=== PATIENT | male | born 1940 | race Caucasian/White ===

== ENCOUNTER 2016-08-31 10:52 | Outpatient (CLI) | payer OTHER ==
[2016-02-11 22:28] VITALS: BP 139/71
[~2016-08-31 10:52] MED LIST: BUPIVACAINE HCL/PF 2.5 MG/ML 10ML VIAL IV ONE; Lidocaine 1% 5ml(IM or SUTURE)(PAIN CLINIC) ONE; TRIAMCINOLONE ACETONID 40MG/ML VIAL ONE
--- NOTE | 2016-09-01 09:45 | HISTORY AND PHYSICAL REPORT ---
REFERRING PHYSICIAN: Dr. Shorty Bah Dear Diony: HISTORY OF PRESENT ILLNESS: I had the opportunity of seeing Aric Payne today as an outpatient in clinic. As you are aware, Aric is a delightful 75-year-old white male who complains of primary right-sided hip and leg pain. He tells me that he has had this a couple of years and that it is worse with activity and walking and that over the past several months, it has gotten more pronounced so that he cannot tolerate standing for more than 5 or 10 minutes before he gets right-sided hip pain which radiates over the lateral thigh. He denies pain below the right knee. He denies pain on the left. He denies low back pain or pain in the gluteal fold. He says when he is relaxing, he has virtually no symptoms, but when he is up on his feet, he gets pain which begins relatively shortly with standing. He had an MRI done and he has a good deal of lumbar degenerative disk disease throughout the lumbar spine, particularly at L2-L3, L3-L4, L4-L5, and L5-S1. There is a grade 1 L4-L5 spondylolisthesis with relatively severe right L4-L5 neuroforaminal stenosis and otherwise, left L5-S1 neuroforaminal stenosis. The spinal canal is also notably narrow at L4-L5 on the right side; however, he has no pain in the sciatic notch. PAST MEDICAL HISTORY: 1. History of hypertension. 2. History of multiple DVTs. 3. Factor V Leiden. 4. Anxiety. 5. Gout. PAST SURGICAL HISTORY: 1. Bilateral inguinal hernia repairs. 2. Bilateral rotator cuff repairs. CURRENT DAILY MEDICATIONS: 1. Atenolol 100 mg in the a.m. and 50 mg in the p.m. 2. Warfarin 5 mg daily. 3. HCTZ 25 mg daily. 4. Allopurinol 300 mg daily. 5. Sertraline 50 mg daily. 6. Hydroxyzine 25 mg p.r.n. 7. Viagra 100 mg p.r.n. ALLERGIES: He has no known drug allergies. SOCIAL HISTORY: He has never used tobacco. 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 He quit drinking in 1998. He denies recreational drug use. He is for the past 11 years. He has 2 children. He lives at home with his spouse. He is retired. He completed the 12th grade. He is not currently disabled. FAMILY HISTORY: Father with a stroke. Mother with heart disease and rheumatoid arthritis. REVIEW OF SYSTEMS: In the past month or so, he reports feeling anxious. His pain is worse with standing, walking, changes in weather, cold, heat, touch and gradually gets worse as the day progresses. Pain is improved with lying down, sitting, ice, and heat. PHYSICAL EXAMINATION: General: This is a mildly obese white male in no apparent distress. Vital Signs: BP: 155/78, P: 62, R: 20, oxygen saturation is 96% on room air. HEENT: Pupils are equal, round, and reactive to light and accommodation. Extraocular movements intact. No facial droop. Neck: There is full range of motion of the cervical spine. No evidence of adenopathy. Thyroid is nontender, no enlarged. Carotids are without bruits. Chest: Clear to auscultation bilaterally. Normal. Chest excursion. Heart: Regular rate and rhythm without murmur. Abdomen: Benign. Normoactive bowel sounds. Motor/sensory: Intact in the upper and lower extremities. Moves all extremities freely. Extremities: Strength is 5/5 and equal in his lower extremities. Negative straight leg raise. There is negative pain in the sciatic notch. There is markedly a positive Tinel's sign of the right hip. ASSESSMENT: 1. Right greater trochanteric bursitis. 2. L4-L5 spinal and neuroforaminal stenosis. 3. Factor V deficiency, on Coumadin. PLAN: At this point, I really think Mr. Payne's symptoms are coming from bursitis of the right hip and is not radicular. I have explained to him that I am going to place a right greater trochanteric bursa injection under fluoroscopy today and we will see if his symptoms resolve. If not, he is to stop his Coumadin and I will follow him up for an L4-L5 epidural injection. I did also discuss PRP therapy for the right bursitis. He is in agreement today and we will proceed. cc: Dr. Neo LESTER
--- NOTE | 2016-09-01 09:48 | GREATER THROCHANTERIC BURSA IN ---
NAME OF PROCEDURE PERFORMED: Right greater trochanteric bursa injection with fluoroscopy. DESCRIPTION OF PROCEDURE: The risks and benefits of the procedure were discussed with the patient, including the risk of infection, bleeding, nerve injury. Furthermore, I discussed the risk of steroid exposure causing hyperglycemia, hypertension, osteoporosis, or increased infectious risks. The patient understood the risks and agreed to proceed. Consent was obtained. The patient was placed in prone position on the fluoroscopy table and the skin overlying the right greater trochanter of the femur was cleaned with an alcohol swab. The trochanter was visualized under AP fluoroscopy. A 25 gauge 1.5 needle was inserted over the trochanter and advanced until contact with the trochanter. It was verified that there was no aspiration of fluid or blood. Triamcinolone acetate, 1% lidocaine, and 0.25% bupivacaine was injected. The needle was removed. The patient was monitored for 20 minutes following the procedure, during which time the patient experienced no adverse sequelae. The patient was discharged to home in good condition with a ambulette driver driving the pt. home. ASSESSMENT: Trochanteric bursitis of the right hip. PLAN: Right greater trochanteric bursa injection with fluoroscopy. FOLLOW UP: Return to clinic if problems develop or worsen. cc: Dr. Antony LESTER
== END 2016-08-31 11:00 ==
LOC: OUT 10:52
PROVIDERS: ATTEND Anesthesiology Pain Medicine
DX: M70.71 Other bursitis of hip, right hip (principal)
CPT/HCPCS: J3301; J3490; 20610; 77002; 90471; 99213; G0463

== ENCOUNTER 2016-10-26 14:08 | Outpatient (CLI) | payer OTHER ==
[2016-02-11 22:28] VITALS: BP 139/71
[2016-10-26 15:42] LABS: eGFR (African) > 60; eGFR (Non-African) > 60
== END 2016-10-26 14:10 ==
LOC: LAB 14:08
PROVIDERS: ATTEND Family Medicine
DX: E78.1 Pure hyperglyceridemia (principal); I10 Essential (primary) hypertension
CPT/HCPCS: 36415; 80053; 80061

== ENCOUNTER 2016-11-16 10:28 | Outpatient (CLI) | payer OTHER ==
[2016-02-11 22:28] VITALS: BP 139/71
--- NOTE | 2016-11-18 09:33 | GREATER THROCHANTERIC BURSA IN ---
REFERRING PHYSICIAN: Dr. Antony Chandler SUBJECTIVE: I had the opportunity of following up with Aric Payne. This is a very nice 76 -year-old white male with right greater trochanteric bursitis. I placed a greater trochanteric bursa injection in August and had complete 100% relief. He said the symptoms are now returning. I re-examined him and they do appear to be at the greater trochanteric bursa and it is recurrent. I have discussed PRP therapy for his right-sided bursitis. For today, I will repeat a right greater trochanteric bursa injection under fluoroscopy. PROCEDURE: Right greater trochanteric bursa injection with fluoroscopy. DESCRIPTION OF PROCEDURE: The risks and benefits of the procedure were discussed with the patient, including the risk of infection, bleeding, nerve injury. Furthermore, I discussed the risk of steroid exposure causing hyperglycemia, hypertension, osteoporosis, or increased infectious risks. The patient understood the risks and agreed to proceed. Consent was obtained. The patient was placed in prone position on the fluoroscopy table and the skin overlying the right greater trochanter of the femur was cleaned with an alcohol swab. The trochanter was visualized under AP fluoroscopy. A 25-gauge 1.5 needle was inserted over the trochanter and advanced until contact with the trochanter. It was verified that there was no aspiration of fluid or blood. Triamcinolone acetate and 1% lidocaine and 0.25% bupivacaine was injected. The needle was removed. The patient was monitored for 20 minutes following the procedure, during which time the patient experienced no adverse sequelae. The patient was discharged to home in good condition with a bobcat driver/labor driving the patient home. ASSESSMENT: Trochanteric bursitis of the hip. PLAN: Right greater trochanteric bursa injection today. FOLLOW UP: Return to clinic if problems develop or worsen. cc: Dr. Antony LESTER
== END 2016-11-16 10:30 ==
LOC: OUT 10:28
PROVIDERS: ATTEND Anesthesiology Pain Medicine
DX: M70.61 Trochanteric bursitis, right hip (principal)
CPT/HCPCS: J3301; J3490; 20610; 20611; 99214; G0463

== ENCOUNTER 2017-01-18 09:12 | Outpatient (CLI) | payer OTHER ==
[2016-02-11 22:28] VITALS: BP 139/71
--- NOTE | 2017-01-18 13:42 | LUMBAR TFESI ---
SUBJECTIVE: Mr. Payne follows up with me today complaining of a new onset of right gluteal pain radiating to the anterior thigh. He said that the gluteal bursa injection that I gave him worked well; however, he was putting in some wind art and bent forward over a wall and began noticing pain shortly thereafter. They took a drive to [place] and he was having severe and significant right anterior thigh pain on the drive. He has had some recurrence of the gluteal bursitis as well. On physical exam, he has a positive assisted extension and rotation finding and a positive femoral nerve stretch on the right side. There is 3+ reflexes on the left patellar tendon and 1+ reflex on the right patellar tendon. DIAGNOSTIC STUDIES: His MRI was reviewed. He has marked degenerative disk disease at L4-L5, grade 1 spondylolisthesis with severe right-sided foraminal stenosis and otherwise moderate spinal stenosis. PROCEDURE: Right L4 transforaminal epidural steroid injection with fluoroscopic guidance. DESCRIPTION OF PROCEDURE: The risks and benefits were discussed with the patient including the risks of infection, bleeding, nerve injury, and headache, as well as the risks of steroid exposure causing hyperglycemia, hypertension, osteoporosis, or increased infectious risk. The patient understood these risks and agreed to proceed. Consent was obtained. The patient was placed in the prone position on the fluoroscopy table with a pillow underneath the abdomen to afford anterior flexion of the lumbar spine. The low back was cleaned and a sterile drape was applied. AP, lateral and oblique fluoroscopic views were obtained identifying the L4 vertebral body and L4 transverse process. An oblique view of the transverse process and pedicles was obtained. A 23-gauge Quincke tip 3.5 spinal needle was advanced under direct-beam (barrel view) fluoroscopic guidance until the tip contacted the superior-most aspect of the right L5 superior articulating process. The needle was then directed superiorly and medially a few millimeters towards the intervertebral foramen. A lateral fluoroscopic view was obtained and the needle was advanced into the inferior/anterior aspect of the L4 neural foramen (L4-L5 intervertebral foramen) epidural space. It was verified that there was no aspiration of CSF or blood. Omnipaque 240 myelogram dye was injected through the needle. The dye was noted to course in the desired distribution within the lumbar foramen epidural space. The patient did report some reproduction of the low back and /or lower extremity pain symptoms; this reproduction of symptoms was short-lived, ceasing within a minute. Triamcinolone acetate and 0.25% bupivacaine was injected into the epidural space. The stylet was replaced in the needle and the needle was removed from the back. The patient tolerated the procedure well. The back was cleaned and a bandage was applied over the injection site. The patient was monitored for 20 minutes following the procedure. During this time the vital signs remained stable and the patient experienced no adverse sequelae. The patient was discharged home in good condition. ASSESSMENT: 1. Right L4 radiculitis. 2. Right greater trochanteric bursitis. 3. L4-L5 spinal and neuroforaminal stenosis. 4. Lumbar radicular pain. PLAN: Plan today for a right L4 transforaminal injection as a diagnostic/therapeutic intervention. He is in agreement today and we will proceed. FOLLOWUP: Return to clinic if problems develop or worsen. cc: Dr. Antony LESTER
== END 2017-01-18 09:13 ==
LOC: OUT 09:12
PROVIDERS: ATTEND Anesthesiology Pain Medicine
DX: M54.16 Radiculopathy, lumbar region (principal); M48.06 Spinal stenosis, lumbar region; M54.5 Low back pain; M70.61 Trochanteric bursitis, right hip
CPT/HCPCS: 64483; 99214; G0463; J3301; J3490; Q9966

== ENCOUNTER 2017-03-08 16:05 | Outpatient (CLI) | payer OTHER ==
[2016-02-11 22:28] VITALS: BP 139/71
[2017-03-08 16:22] LABS: BASOPHILS % 0.8 (0.0-1.5); EOSINOPHILS % 2.4 % (0.0-6.8); MEAN CORPUSCULAR HEMOGLOBIN 34.6 pg (28.0-34.0); MEAN CORPUSCULAR VOLUME 98.6 fl (80.0-100.0); MONOCYTES % 5.3 % (0.0-11.0); NEUTROPHILS # 6.5 # k/uL (1.4-7.7)
[2017-03-08 16:55] LABS: eGFR (African) > 60; eGFR (Non-African) > 60
== END 2017-03-08 16:06 ==
LOC: LAB 16:05
PROVIDERS: ATTEND Family Medicine
DX: I10 Essential (primary) hypertension (principal); R63.5 Abnormal weight gain; D68.51 Activated protein C resistance; I82.409 Acute embolism and thrombosis of unspecified deep veins of unspecified lower extremity
CPT/HCPCS: 36415; 80053; 84443; 85025; 85610

== ENCOUNTER 2017-05-03 12:45 | Outpatient (CLI) | payer OTHER ==
[2016-02-11 22:28] VITALS: BP 139/71
--- NOTE | 2017-05-03 14:28 | Diagnostic Imaging Report ---
HORACIO BENITEZ [facility] [address] [facility].[address] [address] Report Submission Date: May 03, 2017 1:53:59 PM CDT Patient Study Name: DANIEL FERNANDEZ Date: May 03, 2017 1:03:22 PM CDT Modality Type: US Gender: M Description: DPLX SCN XTRCRAN ART CMP GEORGE : 44 Institution: [facility] Physician: HORACIO BENITEZ Examination: Carotid artery ultrasound History: Syncope Comparison exams: None available Findings: Right carotid: Common carotid artery peak systolic velocity 74.4 cm/s; end diastolic velocity 20.6 cm/s. Internal carotid artery peak systolic velocity 68.7 cm/s; end diastolic velocity 24.2 cm/s. External carotid artery velocity to 94.2 cm/s. Vertebral artery velocity 26.0 cm/s Vertebral flow antegrade. Normal waveforms. No occlusive plaquing. Left carotid: Common carotid artery peak systolic velocity 92.1 cm/s; end diastolic velocity 21.6 cm/s. Internal carotid artery peak systolic velocity 62.5 cm/s; end diastolic velocity 25.8 cm/s. External carotid artery velocity to 70.4 cm/s. Vertebral artery velocity 37.0 cm/s Vertebral flow antegrade. Normal waveforms. No occlusive plaquing. Right ICA/CCA Ratio: 0.9 Left ICA/CCA Ratio 0.7 Impression: Carotids ratios not elevated. No restriction to hemodynamic flow. Electronically signed on May 03, 2017 1:53:59 PM CDT by: Jarvis LESTER
--- NOTE | 2017-05-03 14:29 | Diagnostic Imaging Report ---
HORACIO BENITEZ [facility] [address] [facility] [address] [place], [place]. [address] Report Submission Date: May 03, 2017 1:07:21 PM CDT Patient Study Name: DANIEL FERNANDEZ Date: May 03, 2017 12:46:49 PM CDT Modality Type: CR Gender: M Description: CHEST : 44 Institution: [facility] Physician: HORACIO BENITEZ Examination: PA and lateral chest. History: Evaluate lung floyd. Comparison exam: None provided Findings: PA lateral chest demonstrate a normal cardiac and mediastinal silhouette. Minimal parenchymal haziness of right inferior hilar region. No blunting of the costophrenic margins. Osseous structures are appropriate for age. Impression: Suggestion for mild right infrahilar infiltrate. No effusion Electronically signed on May 03, 2017 1:07:21 PM CDT by: Jarvis LESTER
== END 2017-05-03 12:46 ==
LOC: RAD 12:45
PROVIDERS: ATTEND Family Medicine
DX: I65.23 Occlusion and stenosis of bilateral carotid arteries (principal); R06.09 Other forms of dyspnea
CPT/HCPCS: 71020; 93880

== ENCOUNTER 2017-05-10 14:10 | Outpatient (CLI) | payer OTHER ==
[2016-02-11 22:28] VITALS: BP 139/71
== END 2017-05-10 14:11 ==
LOC: RT 14:10
PROVIDERS: ATTEND Family Medicine
DX: R06.09 Other forms of dyspnea (principal)

== ENCOUNTER 2017-06-15 10:05 | Outpatient (CLI) | payer OTHER ==
[2016-02-11 22:28] VITALS: BP 139/71
== END 2017-06-15 10:06 ==
LOC: CARD 10:05
PROVIDERS: ATTEND Internal Medicine Cardiovascular Disease
DX: R06.00 Dyspnea, unspecified (principal); R42 Dizziness and giddiness; I10 Essential (primary) hypertension; E66.9 Obesity, unspecified; Z86.718 Personal history of other venous thrombosis and embolism
CPT/HCPCS: G0463

== ENCOUNTER 2017-06-22 13:24 | Outpatient (CLI) | payer OTHER ==
[2016-02-11 22:28] VITALS: BP 139/71
--- NOTE | 2017-06-22 15:21 | Diagnostic Imaging Report ---
DALTON HARPER [facility] [address] [facility] [address] [address] Report Submission Date: Jun 22, 2017 1:43:44 PM ENERGY RATER Patient Study Name: DANIEL FERNANDEZ Date: Jun 22, 2017 1:34:31 PM ENERGY RATER Modality Type: CR Gender: M Description: CHEST : 44 Institution: [facility] Physician: DALTON HARPER Examination: PA and lateral chest. History: Evaluate lung floyd. 03 May 2017 Findings: PA lateral chest demonstrate a normal cardiac and mediastinal silhouette. Mild tortuosity of the thoracic aorta. Stable lung base scarring. No focal infiltrate. No blunting of the costophrenic margins. Osseous structures are appropriate for age. Impression: No acute pulmonary process. Electronically signed on Jun 22, 2017 1:43:44 PM ENERGY RATER by: Jarvis LESTER
== END 2017-06-22 14:11 ==
LOC: RAD 13:24
PROVIDERS: ATTEND Physician Assistant
DX: R05 Cough (principal)
CPT/HCPCS: 71020

== ENCOUNTER 2017-06-29 13:07 | Outpatient (CLI) | payer OTHER ==
[2016-02-11 22:28] VITALS: BP 139/71
--- NOTE | 2017-06-30 12:34 | PAIN CLINIC PROGRESS NOTES ---
REASON FOR VISIT: Mr. Payne follows up with me today after an L4 transforaminal injection on the right side for right lower extremity pain and L4-L5 spondylolisthesis with marked degenerative disk disease and severe right neural foraminal stenosis. His symptoms have completely resolved. He is no longer having right leg pain. We discussed weight loss, activity pacing, core strengthening, and Yoga. ASSESSMENT/PLAN: I told him that I would be happy to follow him up if his symptoms should worsen or reoccur. He is pleased with the response, and we will follow him up on an as -needed basis. cc: Dr. Antony LESTER
== END 2017-06-29 13:10 ==
LOC: OUT 13:07
PROVIDERS: ATTEND Anesthesiology Pain Medicine
DX: M43.16 Spondylolisthesis, lumbar region (principal); M51.36 Other intervertebral disc degeneration, lumbar region
CPT/HCPCS: 99213; G0463

== ENCOUNTER 2017-09-28 12:03 | Outpatient (CLI) | payer OTHER ==
[2016-02-11 22:28] VITALS: BP 139/71
[~2017-09-28 12:03] MED LIST changes: +0.9 % SODIUM CHLORIDE PF 10 ML VIAL IJ ONE; -BUPIVACAINE HCL/PF 2.5 MG/ML 10ML VIAL IV ONE
--- NOTE | 2017-09-29 11:16 | LUMBAR TFESI ---
SUBJECTIVE: Mr. Payne follows up with me today with right-sided low back and hip pain. He has right L4 radiculitis. I have treated him with an L4 transforaminal injection in the past and he gets about 3 months of relief and his symptoms begin returning. He says he has been working on weight loss, core strengthening , and trying to follow a low-carbohydrate diet. Plan today for a repeat L4 transforaminal injection under fluoroscopic guidance. PROCEDURE: Right L4 lumbar transforaminal epidural steroid injection with fluoroscopic guidance. DESCRIPTION OF PROCEDURE: The risks and benefits were discussed with the patient including the risks of infection, bleeding, nerve injury, and headache, as well as the risks of steroid exposure causing hyperglycemia, hypertension, osteoporosis, or increased infectious risk. The patient understood these risks and agreed to proceed. Consent was obtained. The patient was placed in the prone position on the fluoroscopy table with a pillow underneath the abdomen to afford anterior flexion of the lumbar spine. The low back was cleaned and a sterile drape was applied. AP, lateral and oblique fluoroscopic views were obtained identifying the L4 vertebral body and L4 transverse process. An oblique view of the transverse process and pedicles was obtained. A 23-gauge Quincke tip 3.5 spinal needle was advanced under direct-beam (barrel view) fluoroscopic guidance until the tip contacted the superior-most aspect of the right L5 superior articulating process. The needle was then directed superiorly and medially a few millimeters towards the intervertebral foramen. A lateral fluoroscopic view was obtained and the needle was advanced into the inferior/anterior aspect of the L4 neural foramen (L4-L5 intervertebral foramen) epidural space. It was verified that there was no aspiration of CSF or blood. Omnipaque 240 myelogram dye was injected through the needle. The dye was noted to course in the desired distribution within the lumbar foramen epidural space. The medication was injected into the epidural space. The stylet was replaced in the needle and the needle was removed from the back. The patient tolerated the procedure well. The back was cleaned and a bandage was applied over the injection site. The patient was monitored for 20 minutes following the procedure. During this time the vital signs remained stable and the patient experienced no adverse sequelae. The patient was discharged home in good condition. ASSESSMENT: Lumbar radiculitis/neuritis. PLAN: Right L4 lumbar transforaminal epidural steroid injection under fluoroscopic guidance. FOLLOWUP: Return to clinic if problems develop or worsen. cc: Dr. Antony LESTER
== END 2017-09-28 12:04 ==
LOC: OUT 12:03
PROVIDERS: ATTEND Anesthesiology Pain Medicine
DX: M54.16 Radiculopathy, lumbar region (principal)
CPT/HCPCS: 36415; 85610; J3301; Q9966; 62323; G0463

== ENCOUNTER 2017-11-24 15:12 | Outpatient (CLI) | payer OTHER ==
[2016-02-11 22:28] VITALS: BP 139/71
[2017-11-24 15:37] LABS: BASOPHILS % 0.9 (0.0-1.5); EOSINOPHILS % 1.5 % (0.0-6.8); MEAN CORPUSCULAR HEMOGLOBIN 32.9 pg (28.0-34.0); MEAN CORPUSCULAR VOLUME 98.2 fl (80.0-100.0); MONOCYTES % 4.2 % (0.0-11.0); NEUTROPHILS # 6.5 # k/uL (1.4-7.7)
[2017-11-24 16:24] LABS: eGFR (Non-African) > 60
== END 2017-11-24 15:13 ==
LOC: LAB 15:12
PROVIDERS: ATTEND Family Medicine
DX: E78.1 Pure hyperglyceridemia (principal); I10 Essential (primary) hypertension; N40.1 Benign prostatic hyperplasia with lower urinary tract symptoms; Z79.01 Long term (current) use of anticoagulants
CPT/HCPCS: 36415; 80053; 80061; 84153; 85025; 85610

== ENCOUNTER 2018-02-25 13:57 | Emergency (ER) | payer OTHER ==
[2018-02-25] MEDS ORDERED: 0.9 % SODIUM CHLORIDE 1,000 ML IV ONE ×2 (14:13→15:19)
[2018-02-25] MEDS ORDERED: ONDANSETRON HCL 4 MG TAB.RAPDIS PO ONE (14:13)
[2018-02-25] MEDS ORDERED: ONDANSETRON HCL/PF 4 MG/ 2ML VIAL IVP ONE (14:30)
[2018-02-25] MEDS ORDERED: ONDANSETRON HCL/PF 4 MG/ 2ML VIAL ONE (14:31)
--- NOTE | 2018-02-25 14:31 | ED Physician Documentation ---
General Adult - HISTORIAN Historian: patient - HPI Stated Complaint: dizzy, lightheaded Chief Complaint: General Adult Additional Information: Feels lightheaded, weak, dry, nauseated. Thinks he is dehydrated. Had appointment with Dr. Chandler at 1400 today. Stopped at [place] on the way and felt more lightheaded, so came to the ER. Drank a pint of vodka last evening. Tells RN he had a similar episode two weeks ago, but drank water and Gatorade and felt better. Has had 3/4 of a bottle of water today but nothing to eat. HX of ETOH abuse. Orthostattic in the ER with more than a 20 point drop in systolic pressure from lying to sitting. Says he has urinated 3-4 x today. Denies pain other than nausea. No other modifying factors or associated signs. - ROS CONST: denies: fever - PAST HX Past History: hypertension, other (genetic clotting disorder, leg DVT's) Allergies/Adverse Reactions: Allergies Allergy/AdvReac Type Severity Reaction Status Date / Time propofol Allergy Apnea Verified 02/25/18 14:45 - SOCIAL HX Smoking History: non-smoker - FAMILY HX Family History: No - VITAL SIGNS Vital Signs: Vital Signs Temp Pulse Resp BP Pulse Ox 97.6 F 102 H 16 167/87 95 02/25/18 14:04 02/25/18 14:04 02/25/18 14:04 02/25/18 14:04 02/25/18 14:04 - REVIEWED ASSESSMENTS Nursing Assessment Reviewed: Yes Vitals Reviewed: Yes Progress - Progress Progress: [id number] that not be given any info concerning his ETOH use. suggested we check pt's ETOH level as she thought he had been drinking. 1632, pink, feels better. Orthostatics greatly improved. ED Results Lab/Radiology - Orders Orders: ED Orders Category Date Time Status Orthostatics 1T Care 02/25/18 14:[address] IV Lock 1T Care 02/25/18 14:13 Active ALCOHOL MEDICAL USE ONLY Stat Lab 02/25/18 Ordered CBC/PLATELET/DIFF Routine Lab 02/25/18 Ordered CMP Routine Lab 02/25/18 Ordered DRUG SCREEN URINE MEDICAL ONLY Stat Lab 02/25/18 Ordered LIPASE Stat Lab 02/25/18 Ordered URINALYSIS Routine Lab 02/25/18 Ordered 0.9 % Sodium Chloride [Normal Saline] 1,000 ml Med 02/25/18 14:13 Active IV Q1H Ondansetron HCl Rapdis [Zofran Odt] Med 02/25/18 14:13 Discontinued 8 mg PO NOW ONE General Adult Physical Exam - PHYSICAL EXAM GENERAL APPEARANCE: mild distress EENT: eye inspection normal, pharynx normal, dry mucous membranes (tongue dry, green/tavares) NECK: normal inspection, supple RESPIRATORY: no resp distress, breath sounds normal CVS: reg rate & rhythm, heart sounds normal ABDOMEN: soft, normal bowel sounds BACK: normal inspection, no CVA tenderness, other (no vertebral tenderness) SKIN: normal color, diaphoresis EXTREMITIES: normal range of motion (gait and stance), no evidence of injury NEURO: CN's nml as tested, motor nml, sensation nml, cognition normal Discharge Clincal Impression: Dehydration symptoms Referrals: Antony Chandler MD [Primary Care Provider] - 2 Days Condition: Good Disposition: 01 HOME, SELF-CARE Decision to Admit: NO Decision Time: 16:32
[2018-02-25 14:36] LABS: BASOPHILS % 0.4 (0.0-1.5); EOSINOPHILS % 0.4 % (0.0-6.8); MEAN CORPUSCULAR HEMOGLOBIN 34.4 pg (28.0-34.0); MEAN CORPUSCULAR VOLUME 100.9 fl (80.0-100.0); NEUTROPHILS # 14.8 # k/uL (1.4-7.7)
[2018-02-25 14:43] LABS: CANNABINOIDS NEGATIVE ng/mL (< 50); METHYLENEDIOXYMETHAMPHETAMINE NEGATIVE ng/mL (<500)
[2018-02-25 14:45] LABS: APPEARANCE,URINE CLEAR (CLEAR); COLOR,URINE YELLOW (YELLOW)
[2018-02-25 14:46] LABS: OCCULT BLOOD,URINE 2+ (NEGATIVE); UROBILINOGEN URINE 0.2 Eu (0.2-1.0)
[2018-02-25 14:52] LABS: eGFR (African) > 60; eGFR (Non-African) > 60
[2018-02-25 16:59] VITALS: BP 174/91
== END 2018-02-25 16:41 | disposition home or self-care (01) ==
LOC: ED 13:57
DX: E86.0 Dehydration (principal)
CPT/HCPCS: 80053; 80320; 80377; 81002; 83690; 85025; 85610; J2405; J7030; 96360; 96361; 96375; G0480; G0481; S1016

== ENCOUNTER 2018-03-07 14:44 | Outpatient (CLI) | payer OTHER ==
[2018-03-07 15:19] LABS: BASOPHILS % 0.6 (0.0-1.5); EOSINOPHILS % 0.7 % (0.0-6.8); MEAN CORPUSCULAR HEMOGLOBIN 35.3 pg (28.0-34.0); MEAN CORPUSCULAR VOLUME 102.7 fl (80.0-100.0); NEUTROPHILS # 7.1 # k/uL (1.4-7.7)
[2018-03-07 15:20] LABS: eGFR (African) > 60; eGFR (Non-African) > 60
== END 2018-03-07 14:46 ==
LOC: LAB 14:44
PROVIDERS: ATTEND Family Medicine
DX: I10 Essential (primary) hypertension (principal); R74.8 Abnormal levels of other serum enzymes; D72.9 Disorder of white blood cells, unspecified
CPT/HCPCS: 36415; 80053; 83690; 85025

== ENCOUNTER 2018-05-24 10:31 | Outpatient (CLI) | payer OTHER ==
[2018-05-24] MEDS ORDERED: SALINE FLUSH 10 ML DISP.SYRIN IVF ONE (11:38)
[2018-05-24] MEDS ORDERED: Lidocaine 1% 5ml(IM or SUTURE)(PAIN CLINIC) ONE (11:38)
[2018-05-24] MEDS ORDERED: TRIAMCINOLONE ACETONID 40MG/ML VIAL ONE (11:38)
--- NOTE | 2018-05-24 12:44 | LESI WITH FLUORO ---
SUBJECTIVE: Mr. Payne follows up with symptoms of returning back pain. He has had recalcitrant radiculopathic symptoms in the right lower extremity with acquired L4-L5 spondylolisthesis and neural foraminal stenosis at L4. He is really not complaining of any hip pain at this point. He says that he is having a little bit at night. His chief complaint is back pain that is worse with activity and better with rest and occasionally radiating to both buttocks. At this point, I have recommended a palliative right-sided L5-S1 epidural steroid injection for spinal stenosis and neurogenic claudication. I have explained this to Mr. Payne is at least less invasive than a transforaminal nerve block and he is in agreement today, and I will proceed with a lumbar epidural steroid injection under fluoroscopic guidance. OPERATIVE PROCEDURE: Right L5-S1 epidural steroid injection with fluoroscopic guidance. DESCRIPTION OF PROCEDURE: The risks and benefits were discussed with the patient including the risk of infection, bleeding, nerve injury, and headache, as well as the risks of steroid exposure causing hyperglycemia, hypertension, osteoporosis, or increased infectious risks. The patient understood these risks and agreed to proceed. Consent was obtained prior to the procedure. The patient was placed in the prone position on the fluoroscopy table with a pillow underneath the abdomen to afford anterior flexion of the lumbar spine. The low back was cleaned and a sterile drape was applied. A Tuohy epidural needle was advanced with normal saline loss of resistance technique and direct fluoroscopic guidance with a right paramedian approach at the L5-S1 level. On obtaining loss of resistance to normal saline, it was verified that there was no aspiration of CSF or blood. Furthermore, the needle tip location was verified with lateral and AP fluoroscopic views. Omnipaque 240 myelogram dye were injected through the epidural needle. The distribution of the dye was noted to be within the desired distribution within the lumbar epidural space. Then the medication was injected into the epidural space. The stylet was replaced in the needle and the needle was removed from the back. The patient tolerated the procedure well. The back was cleaned and a bandage was applied over the injection site. The patient was monitored for 20 minutes following the procedure. during this time the vital signs remained stable and the patient experienced no adverse sequelae. The patient was discharged in good condition. ASSESSMENT: Lumbar radiculitis, now with some recurrent symptoms. PLAN: Right L5-S1 epidural steroid injection with fluoroscopic guidance. FOLLOWUP: Return to clinic if problems develop or worsen. cc: Dr. Antony LESTER
== END 2018-05-24 10:33 ==
LOC: OUT 10:31
PROVIDERS: ATTEND Anesthesiology Pain Medicine
DX: M54.16 Radiculopathy, lumbar region (principal); Z79.01 Long term (current) use of anticoagulants
CPT/HCPCS: 36415; 85610; J3301; Q9966; 62323; 99213; G0463

== ENCOUNTER 2018-06-28 10:21 | Outpatient (CLI) | payer OTHER ==
[~2018-06-28 10:21] MED LIST changes: -0.9 % SODIUM CHLORIDE PF 10 ML VIAL IJ ONE; +BUPIVACAINE HCL 0.25% (2.5MG/ML) PF 10ML VIAL IV ONE; +LIDOCAINE HCL 2% PF 100MG/5ML VIAL IJ ONE; -Lidocaine 1% 5ml(IM or SUTURE)(PAIN CLINIC) ONE
--- NOTE | 2018-07-04 13:10 | GREATER THROCHANTERIC BURSA IN ---
SUBJECTIVE: Mr. Payne presents today and his back and left lower extremity pain has resolved. He continues to have some left greater trochanteric bursitis and he would like for me to place an injection in the left greater trochanteric bursa. PROCEDURE: Left greater trochanteric bursa injection with fluoroscopy. DESCRIPTION OF PROCEDURE: The risks and benefits of the procedure were discussed with the patient, including the risk of infection, bleeding, nerve injury. Furthermore, I discussed the risk of steroid exposure causing hyperglycemia, hypertension, osteoporosis, or increased infectious risks. The patient understood the risks and agreed to proceed. Consent was obtained. The patient was placed in prone position on the fluoroscopy table and the skin overlying the left greater trochanter of the femur was cleaned with an alcohol swab. The trochanter was visualized under AP fluoroscopy. A needle was inserted over the trochanter and advanced until contact with the trochanter. It was verified that there was no aspiration of fluid or blood and the medication was injected. The needle was removed. The patient was monitored for 20 minutes following the procedure, during which time the patient experienced no adverse sequelae. The patient was discharged to home in good condition with a freight delivery driver driving the patient home. ASSESSMENT: Trochanteric bursitis. PLAN: Left greater trochanteric bursa injection with fluoroscopy today. FOLLOW UP: Follow up p.r.nLaura cc: Dr. Antony LESTER
== END 2018-06-28 10:22 ==
LOC: OUT 10:21
PROVIDERS: ATTEND Anesthesiology Pain Medicine
DX: M70.62 Trochanteric bursitis, left hip (principal)
CPT/HCPCS: 20610; 77002; J2001; J3301; J3490; Q9966

== ENCOUNTER 2018-09-09 15:39 | Outpatient (CLI) | payer OTHER | END 2018-09-09 15:42 | LOC: LAB 15:39 | PROVIDERS: ATTEND Family Medicine | DX: D68.51 Activated protein C resistance (principal); R73.9 Hyperglycemia, unspecified; Z83.3 Family history of diabetes mellitus; Z13.1 Encounter for screening for diabetes mellitus | CPT/HCPCS: 36415; 83036; 85610 ==

== ENCOUNTER 2019-05-15 14:15 | Outpatient (CLI) | payer OTHER ==
[2019-05-25 08:34] LABS: A1C 5.4 % (<5.7)
== END 2019-05-15 14:25 ==
LOC: LAB 14:15
PROVIDERS: ATTEND Family Medicine
DX: D68.2 Hereditary deficiency of other clotting factors (principal)
CPT/HCPCS: 36415; 80061; 83036; 85610